=== PATIENT | male | born 1950 | race Caucasian/White ===

== ENCOUNTER → 2024-01-18 11:45 | Outpatient (REF) | payer OTHER, SELFPAY ==
[2024-01-18 15:26] LABS: Urine Albumin Negative (Neg - Trace); Urine Bilirubin Negative (Negative); Urine Character Clear (Clear); Urine Color Yellow; Urine Glucose Negative (Negative); Urine Ketone Negative (Negative); Urine Leukocyte Negative (Negative); Urine Nitrite Negative (Negative); Urine Occult Blood Negative (Negative); Urine Specific Gravity 1.015 (<1.030); Urine Urobilinogen Negative (Neg - 1+)
[2024-01-18 15:31] LABS: ALT (SGPT) 25 U/L (0-50); AST (SGOT) 30 U/L (17-59); Albumin 3.7 g/dl (3.5-5.0); Alkaline Phosphatase 56 U/L (38-126); Blood Urea Nitrogen 17 mg/dl (9-20); Carbon Dioxide 23 mmol/L (22-30); Chloride 107 mmol/L (98-107); Glucose 153 mg/dl (70-99); HDL Cholesterol 32 mg/dl; LDL Cholesterol, Calculated 58 mg/dl; Potassium 4.7 mmol/L (3.5-5.1); Sodium 136 mmol/L (135-145); Total Bilirubin 0.6 mg/dl (0.2-1.3); Total Cholesterol 119 mg/dl (50-199); Total Protein 6.5 g/dl (6.3-8.2); Triglyceride 147 mg/dl (10-149); Very Low Density Lipoprotein 29 mg/dl (0-30); eGFR > 60.00
[2024-01-18 15:47] LABS: Free T4 1.06 ng/dl (0.78-2.19)
[2024-01-18 16:01] LABS: TSH 1.73 uIU/ml (0.47-4.68)
[2024-01-19 09:08] LABS: Glycohemoglobin (HgbA1c) 6.7 % (4.0-5.6)
== END ==
LOC: HWLAB 11:45
PROVIDERS: ATTENDING PHYSICIAN Internal Medicine
DX: I48.92 Unspecified atrial flutter (principal); I10 Essential (primary) hypertension; R73.01 Impaired fasting glucose; M11.20 Other chondrocalcinosis, unspecified site; I70.0 Atherosclerosis of aorta; I67.2 Cerebral atherosclerosis; G62.9 Polyneuropathy, unspecified; I73.9 Peripheral vascular disease, unspecified; E03.9 Hypothyroidism, unspecified
CPT/HCPCS: 36415; 80053; 80061; 81003; 83036; 84439; 84443

== ENCOUNTER 2024-04-14 15:36 | Emergency (ER) | payer OTHER, SELFPAY ==
[2024-04-14 15:40] VITALS: BP 109/88
--- NOTE | 2024-04-14 19:00 | ED.GENMED ---
History of Present Illness
General
Chief Complaint: Musculo-Skeletal Complaint
Source: patient and spouse
Exam Limitations: none
Time Seen by Provider: 04/14/24 17:19
Nursing documentation reviewed up to this point in time: agreed with
History of Present Illness
History of Present Illness:
Patient is a 73-year-old male with chronic back pain, spinal stenosis followed at the [facility] in [place] as well as neurology Dr. Tam at [facility]. He reports he had injections months ago however for the past 3 weeks has been having
progressive worsening low back pain. reports they have tried to call his neurologist multiple times with no answer. Patient previously was prescribed oxycodone but did not like the way they made him feel and stopped taking them. In addition
he was prescribed Tramadol but stopped taking it and does not believe he has any more at home.
He takes Alleve.
He does feel that pain radiates to bilateral legs but also has a history of neuropathy. He denies any recent injections or procedures denies any fever chills /incontinence of bowel or bladder .Because he could not get a hold of his neurologist and
they were not calling him back he presented to the ER.
Past History
Past History
ED Past Medical History: Arrthythmia
ED Past Surgical History: Orthopedic
Social History
Tobacco: Non-smoker
Alcohol: None
Drug: None
Living: with family
Employment: Retired
Family History
Family History: Other
Review of Systems
Review of Systems
Allergies reviewed?: Yes
Other source history: family
All Other Systems: ROS reviewed and negative except as documented in HPI and ROS
Constitutional: Reports no symptoms; Denies fever, fatigue or chills
Respiratory: Reports no symptoms
Cardiac: Reports no symptoms
ABD/GI: Reports no symptoms
: Reports no symptoms; Denies dysuria, flank pain, incontinence, urgency or discharge
Musculoskeletal: Reports back pain
Skin: Reports no symptoms
Neurological: Reports no symptoms
Psychiatric: Reports no symptoms
Phy Exam
General Physical Exam
General Presentation: no apparent distress
General age: appears stated age
General Skin: warm and dry
General Habitus: elderly
General Mental: alert
General Hydration: appears well hydrated
Neurological Exam
Neurological Exam: alert, oriented x3 and other (Ambulatory with a steady gait normal strength bilaterally normal dorsiflexion plantarflexion normal sensation bilaterally normal reflexes.)
Musculoskeletal Exam
Musculoskeletal Exam: full ROM and other (Normal inspection to back)
Skin Exam
Skin Exam: normal color and warm/dry
Psychiatric Exam
Psychiatric Exam: normal mood/affect
Course
Vital Signs
Initial and Last Documented VS:
Initial Vital Signs
Temp Pulse Resp BP Pulse Ox
98.1 F 57 16 109/88 99
04/14/24 15:40 04/14/24 15:40 04/14/24 15:40 04/14/24 15:40 04/14/24 15:40
Last Documented Vital Signs
Temp Pulse Resp BP Pulse Ox
98.1 F 57 16 109/88 99
04/14/24 15:40 04/14/24 15:40 04/14/24 15:40 04/14/24 15:40 04/14/24 15:40
MDM/Problems Addressed
Differential Diagnosis Includes:
Not limited to acute on chronic back pain
MDM/Problems Addressed:
Symptoms are consistent with acute on chronic back pain. 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 He was previously prescribed oxycodone did
not like the way it made him feel.
Though he was also given tramadol he simply stopped it and believes he threw it out. Will DC with a short course of tramadol for pain along with steroids and close outpatient follow pain management.
*Critical Care Note
Total Time (30-74mins, 75-104mins- exclusive of procedures): Not Applicable
ED Attending Note
-
Portions of this chart may have been created with voice recognition software.� Occasional wrong word or��sound alike� substitutions may have occurred due to the inherent limitations of voice recognition software.
Discharge Plan
Departure
Patient Disposition: Home (Routine Discharge)
Date of Disposition: 04/14/24
Time of Disposition: 19:03
Patient with high blood pressure during this ER visit?: No
Condition: Fair
Covid-19: Not Applicable
Discharge Problem:
Acute on chronic low back pain
Instructions: Back Pain
Prescriptions:
New
tramadol 50 mg tablet
50 mg PO Q8H PRN (Reason: Pain) Qty: 10 0RF
methylprednisolone [Medrol (Vinod)] 4 mg tablets,dose pack
See Rx Instructions .ROUTE .COMPLEX Qty: 21 0RF
Rx Instructions:
for 6 days
No Action
trazodone 50 mg tablet
100 mg PO HSPRN PRN (Reason: sleep)
gabapentin 600 mg Tablet
600 mg PO BID
acetaminophen [Tylenol Extra Strength] 500 mg Tablet
1,000 mg PO Q8HPRN PRN (Reason: mild pain)
simvastatin [Zocor] 20 mg Tablet
30 mg PO QPM
docusate sodium [Colace] 100 mg Capsule
100 mg PO BID
albuterol sulfate [ProAir HFA] 90 mcg/actuation Hfa Aerosol Inhaler
2 puff INHALATION R Q6HPRN PRN (Reason: sob)
metoprolol tartrate 50 mg Tablet
50 mg PO BID 30 Days Qty: 60 0RF
sertraline 100 mg Tablet
75 mg PO BID Qty: 0 0RF
B cmplx 4-vit [id number]
levothyroxine [Synthroid] 50 mcg Tablet
50 mcg DAILY
lisinopril 10 mg Tablet
10 mg PO DAILY
coenzyme [id number] E 100-100 mg-unit Capsule
100 cap PO DAILY
Spiriva Respimat 1.25 mcg/actuation Mist
1.25 INHALATION DAILY
Eliquis 5 mg tablet
5 mg PO BID Qty: 1 0RF
Referrals:
Deondre Sears MD [Family Provider] -
Ra Tran MD [Active] -
Activity Restrictions/Additional Instructions:
As discussed a new prescription for tramadol was sent to your pharmacy take only as directed. This is a narcotic; no driving or drink alcohol taking this medication. In addition a prescription for steroids were sent to your pharmacy take as
directed.
You were given information for pain management.
Return if any worsening of symptoms
Interventions
Interventions:
*Risk Screen - Suicide Last Done: 04/14/24 15:42
*General Assessment Last Done: 04/14/24 16:59
*Neglect/Abuse Screening Last Done: 04/14/24 15:42
*ED COVID-19 Vaccine History Last Done: 04/14/24 16:59
*Nursing Disposition Last Done: 04/14/24 19:25
ED-Musculoskeletal Assessment Last Done: 04/14/24 16:59
Discharge Date and Time
Print Language: ISRAELI
[2024-04-14 19:25] VITALS: BP 110/85
== END 2024-04-14 19:26 | disposition home or self-care (01) ==
LOC: EMR 15:36
PROVIDERS: EMERGENCY PHYSICIAN Student in an Organized Health Care Education/Training Program; FAMILY PHYSICIAN Internal Medicine
DX: M54.50 Low back pain, unspecified (principal); G89.29 Other chronic pain
CPT/HCPCS: 99283